=== PATIENT | male | born 1975 | race Two or more races ===

== ENCOUNTER 2019-01-28 20:29 | Emergency (ER) | payer OTHER ==
[~2019-01-28] VITALS: Ht 167.6 cm; Wt 74.8 kg
[2019-01-28] MEDS ORDERED: TILENOR (20:54)
[2019-01-28] MEDS ORDERED: ALEVE (20:55)
== END 2019-01-28 22:27 | disposition home or self-care (01) ==
LOC: ER 20:29
DX: G44.209 Tension-type headache, unspecified, not intractable (principal); R19.7 Diarrhea, unspecified

== ENCOUNTER 2020-02-22 21:40 | Emergency (ER) | payer OTHER ==
[~2020-02-22] VITALS: Ht 167.6 cm; Wt 68.0 kg
[~2020-02-22 21:40] MED LIST: ALEVE; TILENOR
[2020-02-23] MEDS ORDERED: PEPCID AC20 MG PO (09:53)
[2020-02-23] MEDS ORDERED: CIPRO500 MG PO (09:53)
== END 2020-02-22 23:04 | disposition home or self-care (01) ==
LOC: ER 21:40
DX: K52.89 Other specified noninfective gastroenteritis and colitis (principal); N39.0 Urinary tract infection, site not specified; Z03.818 Encounter for observation for suspected exposure to other biological agents ruled out